=== PATIENT | male | born 1995 | race Caucasian/White ===

== ENCOUNTER 2024-12-02 12:29 | Observation (INO) | payer OTHER ==
[~2024-12-02] VITALS: Ht 180.3 cm; Wt 48.1 kg
[~2024-12-02 12:29] MED LIST: FINASTERIDE5 MG PO
[2024-12-02 12:52] LABS: BASOPHILS % 0.3 % (0.0-1.0); EOSINOPHILS # (AUTO) 0.1 (0.0-0.4); EOSINOPHILS % 0.8 % (0.0-6.0); HEMOGLOBIN 17.7 g/dL (14.0-18.0); LYMPHOCYTES # (AUTO) 2.8 (1.0-3.2); LYMPHOCYTES % 27.4 % (18.0-39.1); MEAN CORPUSCULAR HEMOGLOBIN 29.2 pg (28-32); MEAN CORPUSCULAR HGB CONC 34.7 g/dL (31-35); MONOCYTES # (AUTO) 0.7 (0.2-0.8); MONOCYTES % 6.5 % (4.4-11.3); NEUTROPHILS # (AUTO) 6.6 (2.1-6.9); NEUTROPHILS % 64.6 % (38.7-80.0); PLATELET COUNT 305 x10e3/uL (140-360); RED BLOOD COUNT 6.07 x10e6/uL (4.3-5.7); WHITE BLOOD COUNT 10.21 x10e3/uL (4.8-10.8)
[2024-12-02 13:13] LABS: ALANINE AMINOTRANSFERASE 24 IU/L (0-55); ALBUMIN 5.2 g/dL (3.5-5.0); ALBUMIN/GLOBULIN RATIO 1.7 (0.8-2.0); ALKALINE PHOSPHATASE 41 IU/L (40-150); ANION GAP 18.8 mmol/L (8-16); BILIRUBIN,TOTAL 2.2 mg/dL (0.2-1.2); BLOOD UREA NITROGEN 12 mg/dL (7-26); BUN/CREATININE RATIO 10 (6-25); CALCIUM 10.4 mg/dL (8.4-10.2); CARBON DIOXIDE 18 mmol/L (22-29); CHLORIDE 103 mmol/L (98-107); CREATININE, SERUM 1.16 mg/dL (0.72-1.25); EST GLOMERULAR FILTRATION RATE 88 ML/MIN (>=60); GLUCOSE 110 mg/dL (74-118); POTASSIUM 3.8 mmol/L (3.5-5.1); SODIUM 136 mmol/L (136-145); TOTAL PROTEIN 8.3 g/dL (6.5-8.1)
[2024-12-02 13:22] LABS: TROPONIN I < 0.001 ng/mL (0-0.300)
[2024-12-02 13:23] LABS: LIPASE 19 U/L (8-78)
[2024-12-02] MEDS: SODIUM CHLORIDE 0.9% 1000ML 1,000 ML IV SCH ×3 (13:30→14:39)
[2024-12-02] MEDS: ONDANSETRON HCL INJ 2MG/ML 2ML 2 MG/ML VIAL IV STA (13:30)
[2024-12-02] MEDS ORDERED: HYOSCYAMINE SULFATE 0.5 MG/ML INJ ONE (13:51)
[2024-12-02] MEDS ORDERED: METOCLOPRAMIDE HCL 10 MG/2ML VIAL ONE (13:51)
[2024-12-02] MEDS ORDERED: DEXMEDETOMIDINE HCL 200 MCG/2 ML VIAL ONE (13:51)
[2024-12-02] MEDS ORDERED: GLUCAGON FOR INJ 1 MG VIAL ONE (13:51)
[2024-12-02] MEDS ORDERED: LACTATED RINGER'S 1,000 ML ONE (14:39)
[2024-12-02] MEDS: LACTATED RINGER'S 1,000 ML INJ ONE (15:11)
[2024-12-02 18:00] VITALS: TEMP 98.3
[2024-12-02 19:18] VITALS: PULSE 82; RESP 16; O2SAT 99
[2024-12-02] MEDS ORDERED: ACETAMINOPHEN 325 MG TAB PO PRN (19:45)
[2024-12-02 20:00] VITALS: PULSE 73; RESP 18
[2024-12-02 20:47] VITALS: BP 104/65; PULSE 70; RESP 17; TEMP 98.2; O2SAT 100
[2024-12-02 21:00] VITALS: BP 104/65; PULSE 70; RESP 17; TEMP 98.2; O2SAT 100
[2024-12-02] MEDS: BISACODYL 5 MG TAB EC PO ONE ×2 (23:13→23:53)
[2024-12-03] VITALS (8 sets, daily range): BP systolic 96–111; BP diastolic 56–66; PULSE 59–83; RESP 16–20; TEMP 97.6–98.2; O2SAT 98–100
[2024-12-03] MEDS: ONDANSETRON HCL INJ 2MG/ML 2ML 2 MG/ML VIAL IV PRN (01:36)
[2024-12-03] MEDS: CITRATE OF MAGNESIA 300ML BOTTLE PO ONE (04:46)
[2024-12-03 05:36] LABS: BASOPHILS % 0.4 % (0.0-1.0); EOSINOPHILS # (AUTO) 0.1 (0.0-0.4); EOSINOPHILS % 0.9 % (0.0-6.0); HEMATOCRIT 42.8 % (38.2-49.6); HEMOGLOBIN 14.8 g/dL (14.0-18.0); LYMPHOCYTES # (AUTO) 1.8 (1.0-3.2); MEAN CORPUSCULAR HEMOGLOBIN 29.3 pg (28-32); MEAN CORPUSCULAR HGB CONC 34.6 g/dL (31-35); MEAN CORPUSCULAR VOLUME 84.8 fL (81-99); MONOCYTES # (AUTO) 0.4 (0.2-0.8); MONOCYTES % 4.9 % (4.4-11.3); NEUTROPHILS # (AUTO) 5.2 (2.1-6.9); NEUTROPHILS % 69.5 % (38.7-80.0); PLATELET COUNT 255 x10e3/uL (140-360); RED BLOOD COUNT 5.05 x10e6/uL (4.3-5.7); RED CELL DISTRIBUTION WIDTH 11.8 % (11.7-14.4)
[2024-12-03 05:51] LABS: CALCIUM IONIZED 1.2 mmol/L (1.09-1.30)
[2024-12-03 06:05] LABS: ANION GAP 13.9 mmol/L (8-16); CALCIUM 8.9 mg/dL (8.4-10.2); CREATININE, SERUM 0.82 mg/dL (0.72-1.25); POTASSIUM 3.9 mmol/L (3.5-5.1)
[2024-12-03 06:18] LABS: ALBUMIN 4.4 g/dL (3.5-5.0); BILIRUBIN,DIRECT 0.5 mg/dL (0.0-0.5); BILIRUBIN,TOTAL 1.4 mg/dL (0.2-1.2); MAGNESIUM 1.7 MG/DL (1.3-2.1); TOTAL PROTEIN 6.7 g/dL (6.5-8.1)
[2024-12-03 06:40] LABS: THYROID STIMULATING HORMONE 0.507 uIU/mL (0.350-4.940)
[2024-12-03 07:38] LABS: ABG HCO3 21 mmol/L (22-26); ABG PCO2 44 mmHg (35-45); ABG PH 7.29 (7.35-7.45); ABG PO2 40 mmHg (80-105); ABG TCO2 23
[2024-12-03 17:19] LABS: CDIFF AG QUIK CHEK NEGATIVE (NEGATIVE); CDIFF TOX QUIK CHEK NEGATIVE (NEGATIVE); WBC,FECAL (FECAL LACTOFERRIN) NEGATIVE (NEGATIVE)
[2024-12-03] MEDS: Pantoprazole IV 80 MG in SODIUM CHLORIDE 0.9% 100 ML IV ONE (17:28)
[2024-12-04] VITALS: BP 104/68; PULSE 58; RESP 16; TEMP 98.3; O2SAT 100
[2024-12-04 04:00] VITALS: BP 97/58; PULSE 64; RESP 16; TEMP 98.2; O2SAT 100
[2024-12-04 05:33] LABS: BASOPHILS % 0.1 % (0.0-1.0); EOSINOPHILS # (AUTO) 0.1 (0.0-0.4); EOSINOPHILS % 1.6 % (0.0-6.0); HEMATOCRIT 36.1 % (38.2-49.6); HEMOGLOBIN 12.9 g/dL (14.0-18.0); LYMPHOCYTES # (AUTO) 1.8 (1.0-3.2); LYMPHOCYTES % 24.3 % (18.0-39.1); MEAN CORPUSCULAR HEMOGLOBIN 29.6 pg (28-32); MEAN CORPUSCULAR HGB CONC 35.7 g/dL (31-35); MEAN CORPUSCULAR VOLUME 82.8 fL (81-99); MONOCYTES # (AUTO) 0.4 (0.2-0.8); NEUTROPHILS # (AUTO) 5.1 (2.1-6.9); NEUTROPHILS % 68.7 % (38.7-80.0); PLATELET COUNT 182 x10e3/uL (140-360); RED BLOOD COUNT 4.36 x10e6/uL (4.3-5.7); RED CELL DISTRIBUTION WIDTH 11.7 % (11.7-14.4); WHITE BLOOD COUNT 7.38 x10e3/uL (4.8-10.8)
[2024-12-04 06:05] LABS: ALBUMIN 3.8 g/dL (3.5-5.0); ANION GAP 10.8 mmol/L (8-16); BILIRUBIN,TOTAL 0.6 mg/dL (0.2-1.2); CALCIUM 8.3 mg/dL (8.4-10.2); CREATININE, SERUM 0.86 mg/dL (0.72-1.25); POTASSIUM 3.8 mmol/L (3.5-5.1); TOTAL PROTEIN 5.7 g/dL (6.5-8.1)
[2024-12-04 08:00] VITALS: BP 110/73; PULSE 62; RESP 17; TEMP 98; O2SAT 100
[2024-12-04] MEDS ORDERED: PANTOPRAZOLE SO40 MG PO (08:43)
[2024-12-04 11:52] VITALS: BP 103/60; PULSE 71; RESP 18; TEMP 97.4; O2SAT 100
[2024-12-04] MEDS ORDERED: ONDANSETRON HCL 4 MG ORAL DISINTEGRATING TAB PO PRN (14:00)
== END 2024-12-04 13:45 | disposition home or self-care (01) ==
LOC: ER 12:37 → ERHOLD 13:37 → MED/SURG 20:41
PROVIDERS: ADMIT Internal Medicine; ATTEND Internal Medicine
DX: I95.1 Orthostatic hypotension (principal); R63.4 Abnormal weight loss; E83.52 Hypercalcemia; R17 Unspecified jaundice; K21.00 Gastro-esophageal reflux disease with esophagitis, without bleeding; K62.89 Other specified diseases of anus and rectum; K52.9 Noninfective gastroenteritis and colitis, unspecified; K64.8 Other hemorrhoids; K29.70 Gastritis, unspecified, without bleeding; K59.00 Constipation, unspecified; R00.0 Tachycardia, unspecified; I34.0 Nonrheumatic mitral (valve) insufficiency; E46 Unspecified protein-calorie malnutrition; Z79.899 Other long term (current) drug therapy
CPT/HCPCS: 36415 ×3; 43239; 45380; 80048; 80053 ×2; 80076; 82805; 82948; 83036; 83630; 83690; 83735; 83880; 83993; 84443; 84484; 85025 ×3; 86140; 87045; 87177; 87324; 87328; 87449; 88305; 88342; 93005 ×2; 93306; 93880; 94799 ×2; 99284; G0378 ×3; J1610; J1980; J2405; J2470 ×2; J2765; J7030 ×3; J7050; J7121; J2003; J2250